=== PATIENT | female | born 1980 | race Caucasian/White ===

== ENCOUNTER 2019-03-03 23:43 | Emergency (ER) | payer MEDICAID ==
[~2019-03-03] VITALS: Ht 157.5 cm; Wt 62.1 kg
[2019-03-03 23:47] VITALS: Ht 157.5 cm; Wt 62.1 kg
[2019-03-04 00:20] LABS: BASOPHIL % 0.6 % (0-2); PLATELET COUNT 210 x10^3mcL (130-400); RED CELL DISTRIBUTION WIDTH 14.1 % (11.5-14.5)
[2019-03-04 00:25] LABS: microscopic required? NO
[2019-03-04 00:35] LABS: CALCIUM 9.8 mg/dL (8.5-10.1); CARBON DIOXIDE 24.8 mmol/L (21-32); CHLORIDE SERUM 104 mmol/L (98-107); CREATININE SERUM 0.6 mg/dL (0.6-1.0); GFR1 > 60 mL/min; GLUCOSE SERUM 110 mg/dL (74-106); POTASSIUM SERUM 3.7 mmol/L (3.5-5.1); SODIUM SERUM 140 mmol/L (136-145)
[2019-03-04 00:40] LABS: urine erythrocyte NEGATIVE (NEGATIVE)
[2019-03-04 00:40] LABS: ALKALINE PHOSPHATASE 77 U/L (46-116); ALT/SGPT 23 U/L (14-59); AST/SGOT 14 U/L (15-37); BILIRUBIN TOTAL 0.29 mg/dL (0.20-1.00); LIPASE 58 IU/L (73-393); TOTAL PROTEIN, SERUM 7.6 g/dL (6.4-8.2)
[2019-03-04 01:05] VITALS: BP 122/66
== END 2019-03-04 01:51 | disposition home or self-care (01) ==
LOC: ED 23:43
PROVIDERS: Emergency Medicine
DX: R10.13 Epigastric pain (principal); D72.829 Elevated white blood cell count, unspecified
CPT/HCPCS: 36415; Q0092; Q0162

== ENCOUNTER 2019-03-04 12:05 | Emergency (ER) | payer MEDICAID ==
[~2019-03-04] VITALS: Ht 157.5 cm; Wt 61.7 kg
[2019-03-04 12:14] VITALS: BP 124/68; Ht 157.5 cm; Wt 61.7 kg
== END 2019-03-04 12:48 | disposition home or self-care (01) ==
LOC: ED 12:05
DX: K29.00 Acute gastritis without bleeding (principal)